=== PATIENT | female | born 1945 | race Caucasian/White ===

== ENCOUNTER 2020-06-30 04:13 | Emergency (ER) | payer MEDICARE, OTHER ==
[~2020-06-30] VITALS: Ht 170.2 cm; Wt 117.9 kg
[~2020-06-30 04:13] MED LIST: ACCUPRIL20 MG PO; AMLODIPINE BESYL5 MG PO; CALTRATE 600+D1 EAC2 PO; CARVEDILOL12.5 MG PO; CENTRUM SILVER1 EAC3 PO; FISH OIL 1,2001 EAC1 PO; GARLIC OIL1000 MG PO; GLUCOSAMINE CO1 EACH PO; KEFLEX500 MG PO; LEVEMIR FL100 UNIT/1 SUB-Q; METHOCARBAMOL500 MG PO; SIMVASTATIN20 MG PO; TRIAMTERENE-HC1 EAC1 PO; VICTOZA 3-0.6 MG/0.1 SUB-Q
[2020-06-30] MEDS ORDERED: HYDROCODON-ACE1 EA10 PO (04:49)
[2020-06-30] MEDS ORDERED: DICLOFENAC SODI75 MG PO (05:00)
== END 2020-06-30 05:20 | disposition home or self-care (01) ==
LOC: ED 04:13
DX: M79.642 Pain in left hand (principal); E11.9 Type 2 diabetes mellitus without complications; E78.00 Pure hypercholesterolemia, unspecified; Z88.7 Allergy status to serum and vaccine; Z79.899 Other long term (current) drug therapy; Z79.4 Long term (current) use of insulin
CPT/HCPCS: 99283